=== PATIENT | male | born 1960 | race Caucasian/White ===

== ENCOUNTER 2018-05-01 04:08 | Inpatient (IN) | payer OTHER ==
[~2018-05-01] VITALS: Ht 188 cm; Wt 142.9 kg
[~2018-05-01 04:08] MED LIST: AMLODIPINE5 MG; CIPRO 500MG TA500 MG PO; FLOMAX0.4 M1; HYDROCHLOROTHIA50 MG; LEVOTHYROXIN0.025 MG; LISINOPRIL40 M1; PERCOCET 325 MG1 TA2 PO
--- NOTE | 2018-05-01 11:30 | Operative Report ---
Operative/Inv Procedure Report Surgery Date: 05/01/18 Name of Procedure: Cystoscopy and TURP Pre-Operative Diagnosis: Prostatic hypertrophy with recurrent prostatic bleeding, history of bladder tumor Post-Operative Diagnosis: Same Estimated Blood Loss: 150 cc Surgeon/Sheetmetal Worker: Phillip Reid MD Anesthesia: local monitored anesthesi Drains: 22 [place] three-way hematuria catheter for CBI Specimens: Urine culture and prostate chips Complications: None Condition: Stable Operative Indication: Recurrent hematuria secondary to prostatic hypertrophy and history of bladder tumor Operative/Procedure Note Note: The patient was taken to the cystoscopy room and identified. He was placed in supine position on the cystoscopy table. A timeout was executed appropriate with the patient awake. General anesthesia was induced via LMA. He was then placed in dorsal lithotomy position. Bimanual rectal exam revealed an enlarged prostate with no other pelvic masses. Was prepped and draped in usual fashion for cystoscopy. A surgical pause was executed appropriately. A tunneled 22 [place] cystoscope sheath was placed into the bladder under direct vision using the 30 lens. The anterior urethra was normal. The prostatic urethra was about 5 cm in length. There was definite hypertrophy of the lateral lobes with the exception of the area just around the bladder neck. There was definite edema at the bladder neck and stone encrustations around the bladder neck. Cystoscopy was then performed. The bladder was mildly trabeculated. There was no evidence of bladder tumors. There was some inflammatory changes of the trigone. Bladder was left full and the 25 Citizen [place] resectoscope sheath placed using the obturator. The working element was inserted. TURP was then performed. First the bladder neck was resected circumferentially. Hemostasis was obtained with electrocautery. Next the left lateral lobe of the prostate was resected between the 1:00 and 5:00 positions using the bladder neck as the proximal landmark and the verumontanum as a distal landmark. Hemostasis was obtained with electrocautery. Next the right lateral lobe of the prostate was resected between 11:00 and 7:00 positions using the same landmarks. Hemostasis was obtained with electrocautery. Next the floor the black prostatic urethra was resected between 5 and 7:00 positions again using the same landmarks. Hemostasis was obtained with electrocautery. Finally the roof of the prostatic fossa was resected between 11:00 and 1:00 positions using the same landmarks. At this point all prostate chips were irrigated from the bladder. Hemostasis was obtained with electrocautery. No significant bleeding was noted at this time. The prostatic fossa appeared wide open. The bladder was left full and the resectoscope removed. A 22 [place] three-way hematuria catheter was placed. Continuous bladder irrigation was begun with light pink drainage. Patient's blood pressure was 110 systolic at that time. Catheter was placed on light traction. Patient tolerated the procedure well and that completes was taken to recovery room in stable condition. Findings: Bilateral lateral lobe prostatic hypertrophy, edema at the bladder neck with stone encrustations on the edema Discharge Disposition: PACU
[2018-05-01 13:25] VITALS: BP 140/80
[2018-05-01 16:00] VITALS: BP 140/80
[2018-05-01 22:07] VITALS: BP 152/76
[2018-05-02 06:46] VITALS: BP 140/60
--- NOTE | 2018-05-02 06:59 | PN- Urology ---
Subjective Subjective: Comfortable Objective Vital Signs and I&Os Vital Signs Date Time Temp Pulse Resp B/P B/P Pulse O2 O2 Flow FiO2 Mean Ox Delivery Rate 05/02 0646 98.2 81 20 140/60 99 05/01 2207 98.9 83 20 152/76 98 Room Air 05/01 1837 Room Air 05/01 1600 Room Air 05/01 1600 98.7 82 20 140/80 97 05/01 1325 98.7 82 20 140/80 97 05/01 1252 Room Air Intake & Output 05/02 0000 05/01 1600 05/01 0000 04/30 1600 Intake Total 500 300 340 Output Total 1400 900 0 Balance -900 -600 340 Intake, IV 400 200 100 Intake, Oral 100 100 240 Number 0 Bowel Movements Output, Urine 1400 900 0 Patient 315 lb Weight Abd: soft and non tender Genitalia: 3-way fonseca in place. CBI running at moderate rate. Drainage is clear Extrems: no calf tenderness Today's labs pending Assessment/Plan Assessment/Plan Imp: 1. Stable POD #1 s/p TURP Plan: 1. Wean of CBI 2. continue fonseca 3. hep lock IV 4. Out of bed walking 5. Hopeful to remove fonseca tomorrow AM Core Measures Venous Thromboembolism VTE Risk Factors Age>40 No Mechanical VTE Prophylaxis d/t Other No VTE Pharm Prophylaxis d/t Other
[2018-05-02 08:22] LABS: ABSOLUTE BASOPHIL COUNT 0 /CUMM (0.0-0.2); ABSOLUTE EOSINOPHIL COUNT 0.2 /CUMM (0.0-0.7); ABSOLUTE GRANULOCYTE CT 6.9 /CUMM (1.4-6.5); ABSOLUTE LYMPH COUNT 1.3 /CUMM (1.2-3.4); ABSOLUTE MONOCYTE COUNT 0.6 /CUMM (0.10-0.60); BASOPHIL % 0.5 % (0.0-2.0); EOSINOPHIL % 1.8 % (0-5); GRANULOCYTE % 76.5 % (42.2-75.2); HEMATOCRIT 38.5 % (42-52); MEAN CORPUSCULAR HGB 28.4 PG (27.0-31.0); MEAN CORPUSCULAR HGB CONC 33.4 G/DL (33.0-37.0); MEAN CORPUSCULAR VOLUME 84.8 FL (80.0-94.0); MEAN PLATELET VOLUME 8.1 FL (7.4-10.4); PLATELET COUNT 191 /CUMM (130-400); RBC DISTRIBUTION WIDTH 15.3 % (11.5-14.5); RED BLOOD CELL CT 4.54 /CUMM (4.70-6.10)
[2018-05-02 13:46] VITALS: BP 130/80
[2018-05-02 21:57] VITALS: BP 154/70
[2018-05-03 06:29] VITALS: BP 156/82
--- NOTE | 2018-05-03 07:29 | PN- Urology ---
Subjective Subjective: Patient comfortable Objective Vital Signs and I&Os Vital Signs Date Time Temp Pulse Resp B/P B/P Pulse O2 O2 Flow FiO2 Mean Ox Delivery Rate 05/03 0629 99.0 91 20 156/82 96 Room Air 05/02 2157 99.8 80 20 154/70 97 Room Air 05/02 1346 99.3 95 18 130/80 97 05/02 0828 77 152/90 05/02 827 77 152/90 Intake & Output 05/03 0000 05/02 1600 05/02 0000 05/01 1600 Intake Total 797 768 6988 500 300 340 Output Total 1600 1750 1650 1400 900 0 Balance -900 -1250 350 -900 -600 340 Intake, IV 400 200 100 Intake, Oral 965 784 8806 100 100 240 Number 1 0 Bowel Movements Output, Urine 1600 1750 1650 1400 900 0 Patient 315 lb Weight Abd: soft and non tender Genitalia: fonseca in place. CBI off. Urine mostly clear Assessment/Plan Assessment/Plan Imp: 1. Stable POD #2 s/p TURP Plan: 1. fonseca removed 2. If voids adequately will discharge this PM Core Measures Venous Thromboembolism VTE Risk Factors Age>40 No Mechanical VTE Prophylaxis d/t Other No VTE Pharm Prophylaxis d/t Other
[2018-05-03 08:16] VITALS: BP 156/82
[2018-05-03] MEDS ORDERED: ALLOPURINOL300 M1 PO (12:32)
[2018-05-03] MEDS ORDERED: AMLODIPINE BESYL5 M1 PO (12:32)
[2018-05-03] MEDS ORDERED: VITAMIN D250000 UNIT PO (12:33)
[2018-05-03] MEDS ORDERED: HYDROCHLOROTH12.5 M3 PO (12:34)
[2018-05-03] MEDS ORDERED: KLOR-CON 1010 ME1 PO (12:34)
[2018-05-03] MEDS ORDERED: SYNTHROID100 MCG PO (12:34)
[2018-05-03] MEDS ORDERED: METFORMIN HCL500 M3 PO (12:35)
[2018-05-03] MEDS ORDERED: MAGNESIUM400 M1 PO (12:35)
[2018-05-03] MEDS ORDERED: TOPROL XL25 M1 PO (12:36)
--- NOTE | 2018-05-03 17:03 | Discharge Summary ---
Visit Information Visit Dates Admission Date: 05/01/18 Discharge Date: 05/03/18 Hospital Course Course Attending Physician: Phillip Reid MD Primary Care Physician: Naty ANDRE,Guille Beavers Consulting Request: Consulting Specialty: Dentistry Hospital Course: Underwent TURP on 05/01/18. Passed a voiding trial on 05/03/18 and was discharged that day to follow up in the office in 2 weeks Complications: None Allergies: Coded Allergies: No Known Allergies (04/27/18) Significant Procedures: TURP Disposition Summary Disposition Principal Diagnosis: BPH Additional Diagnosis: diabetes mellitus Discharge Disposition: home or self care Discharge Instructions General Discharge Information Code Status: Full Code Patient's Diet: regular Patient's Activity: light only Follow-Up Instructions/Appts: Office visit in 2 weeks Medications at Discharge Discharge Medications: Continue taking these medications: Lisinopril (Lisinopril) 40 MG TABLET Comments: LAST DOSE GIVEN ON 03/13/14 AT 0828 Tamsulosin Hydrochloride (Flomax) 0.4 MG [id number] Comments: LAST DOSE GIVEN ON 03/13/14 AT 0829 Allopurinol (Allopurinol) 300 MG TABLET 1 Tablet ORAL DAILY Amlodipine Besylate (Amlodipine Besylate) 5 MG TABLET 1 Tablet ORAL DAILY Ergocalciferol (Vitamin D2) (Vitamin D2) 50,000 UNIT CAPSULE 1 Capsule ORAL EVERY 2 WEEKS Hydrochlorothiazide (Hydrochlorothiazide) 12.5 MG CAPSULE 1 Capsule ORAL DAILY Potassium Chloride (Klor-Con 10) 10 MEQ TABLET.ER 1 Tablet ORAL DAILY Levothyroxine Sodium (Synthroid) 100 MCG TABLET 3 Tablet ORAL DAILY Magnesium Oxide (Magnesium) 400 MG CAPSULE 1 Capsule ORAL DAILY Metformin HCl (Metformin HCl) 500 MG TABLET 1 Tablet ORAL DAILY Metoprolol Succ XL (Toprol XL) 25 MG TAB 1 Tablet ORAL DAILY Copies To: Naty ANDRE,Guille Beavers
== END 2018-05-03 17:25 | DRG 714 ==
LOC: STS 04:08 → PACUH 11:15 → 2NA 11:15 → ENRESERV 11:49 → ENTRNSPT 12:25 → EDTRNSPTSTS 12:28 → 2NA 12:45 → CMPTRNSPT 12:57 → 2NA 05-03 17:25
PROVIDERS: Urology
PROC: 0TBC8ZZ Excision of Bladder Neck, Via Natural or Artificial Opening Endoscopic (ICD-10-PCS; principal; 2018-05-01)
PROC: 0VB08ZZ Excision of Prostate, Via Natural or Artificial Opening Endoscopic (ICD-10-PCS; principal; 2018-05-01)
PROC: 0VC08ZZ Extirpation of Matter from Prostate, Via Natural or Artificial Opening Endoscopic (ICD-10-PCS; principal; 2018-05-01)
DX: N40.1 Benign prostatic hyperplasia with lower urinary tract symptoms (principal); Z85.51 Personal history of malignant neoplasm of bladder; E11.9 Type 2 diabetes mellitus without complications; I10 Essential (primary) hypertension; E89.0 Postprocedural hypothyroidism; Z79.84 Long term (current) use of oral hypoglycemic drugs
CPT/HCPCS: 2NAP; 36592; 82436; 87086; J0131; J0690; J1644; J2250; J2405; J7042